=== PATIENT | female | born 1965 | race Caucasian/White ===

== ENCOUNTER 2016-04-14 17:51 | Emergency (ER) ==
[2016-04-14 18:24] LABS: URINE CULTURE NEEDED? NO; URINE SOURCE CLEAN CATCH
--- NOTE | 2016-04-14 18:30 | PROVIDER DOCUMENTATION ---
HPI-General Adult - General Chief Complaint: UTI Symptoms Stated Complaint: UTI SX Time Seen by Provider: 04/14/16 18:10 Source: patient Allergies/Adverse Reactions: Patient Allergies Allergy/AdvReac Type Severity Reaction Status Date / Time No Known Allergies Allergy Verified 04/14/16 18:23 Home Medications: Duloxetine [Cymbalta] 120 mg PO QHS 04/08/12 Gabapentin [Neurontin] 600 mg PO BID 04/08/12 Tizanidine [Zanaflex] 8 mg PO QHS 04/08/12 Zolpidem Tartrate [Ambien Cr] 12.5 mg PO QHS 04/14/16 - History of Present Illness -Gen Adult Nature of Presenting Problems: 51 y/o f presents to the ed with UTI symptoms X 1 week. pt reports she has been having generalized abdomen pain along with bilateral back pain, nausea, fever and chills. pt denies any vomiting/diarrhea. Location of Pain/Injury: reports: abdomen Pain Radiation: reports: back Quality of Pain: reports: aching Severity: reports: mild Onset/Duration: reports: 1 week ago Timing: reports: still present Associated Symptoms: reports: back/neck pain, fever/chills Similar Symptoms Previously?: No Recently seen or treated by another doctor?: No Review of Systems - Adult - REVIEW OF SYSTEMS - ADULT Constitutional: reports: chills, fever. denies: night sweats, weight gain Gastrointestinal: reports: abdominal pain, nausea. denies: constipation, diarrhea Musculoskeletal: reports: back pain. denies: muscle aches Past History - Adult - PAST MEDICAL HISTORY-ADULT Review of Records: reports: Old Records Reviewed, Nursing Assessment Review, Medications Reviewed - IMMUNIZATION STATUS Childhood Immunizations: See Nurse Assessment Flu Vaccine: See Nurse Assessment - SOCIAL HISTORY Smoking: non-smoker Substance Use: alcohol Alcohol Use Frequency: occasionally Physical Exam-General - PHYSICAL EXAM-ADULT Initial Vital Signs Reviewed: Yes - CONSTITUTIONAL General Appearance: appears well, alert, no apparent distress - EYES Eyes: PERRL/EOMI, pink conjunctivae, fundi clear, no AV nicking - HEAD, EARS, NOSE, MOUTH & THROAT HENMT: normocephalic/atraumatic, moist mucous membranes, normal ENT inspection - NECK Neck: non-tender, full range of motion, supple - RESPIRATORY Respiratory: chest non-tender, lungs clear, normal breath sounds - CARDIOVASCULAR Cardiovascular: normal peripheral pulses, regular rate, rhythm - GASTROINTESTINAL (ABDOMEN) Abdominal Exam: normal bowel sounds, soft, tenderness - LYMPHATIC Lymphatic: no adenopathy - MUSCULOSKELETAL Back Exam: CVA tenderness - SKIN Integumentary: normal color, normal turgor, warm/dry - PSYCHIATRIC Psych/Mental Status: normal mood/affect, normal thought content, normal thought process, oriented x 3 Progress - PLAN OF CARE/RESULTS Progress/Plan/Lab Results: plan of care: labs, medication Laboratory Tests 04/14/16 18:13 Urine Source CLEAN CATCH Urine Color YELLOW Urine Turbidity HAZY Urine pH 5.5 Ur Specific [place] 1.021 Urine Protein 100 A Ur Glucose (Stick) NEGATIVE Ur Ketones (Stick) NEGATIVE Urine Blood MODERATE A Urine Nitrite POSITIVE A Urine Bilirubin NEGATIVE Urobilinogen Dipstick 2 A Urine Leukocytes LARGE A Orders Category Date Time Status UA NIMS W/REFLEX CULT [URINALYSIS] Stat Lab 04/14/16 18:13 Results URINE MANUAL MICROSCOPIC [URINALYSIS] Stat Lab 04/14/16 18:13 Results CefTRIAXONE [Rocephin] Med 04/14/16 19:03 Discontinued 1 gm IM NOW ONE Lidocaine 1% Pf [Xylocaine-Mpf 1%] Med 04/14/16 19:03 Discontinued 5 ml INJ NOW ONE Vital Signs - 24 hr 04/14/16 17:55 Temperature 97.6 F Pulse Rate 79 Respiratory 18 Rate Blood Pressure 160/94 O2 Sat by Pulse 99 Oximetry Departure - Departure Time of Disposition Order: 19:04 DIAGNOSIS: UTI (urinary tract infection) Qualifiers: Urinary tract infection type: site unspecified Hematuria presence: without hematuria Qualified Code(s): N39.0 - Urinary tract infection, site not specified Disposition: HOME 01 Certified Medical Emergency: Emergent Condition: Stable Additional Instructions: ED Follow Up Instructions: You have been treated by a care provider in the Emergency Department. These instructions are being provided to you so you can have an understanding of how to care for yourself upon discharge. Upon discharge from the Emergency Department, you are responsible for making arrangements for follow-up care by a physician of your choice. Take all prescribed medications as directed. Return to the Emergency Department immediately for any new or worsening symptoms. You may call the Physician Referral phone number at [phone] to obtain a list of Physicians who are taking new patients. Prescriptions: Phenazopyridine HCl [Pyridium] 100 mg PO TID #21 tablet Attestation - Scribe Verification/Attestation Scribe:: Jo Ann Tran Acting as Scribe for:: Brigido Antonio Scribe documention review:: This chart was documented by a scribe and accurately reflects the service the provider performed and the decisions made by the provider.
[2016-04-14 18:47] LABS: BILIRUBIN URINE NEGATIVE (NEGATIVE); BLOOD URINE MODERATE (NEGATIVE); COLOR YELLOW; GLUCOSE URINE NEGATIVE (NEGATIVE); LEUKOCYTES URINE LARGE (NEGATIVE); NITRITE URINE POSITIVE (NEGATIVE); PH URINE 5.5; PROTEIN URINE 100 mg/dL (NEGATIVE); SP GRAVITY URINE 1.021; TURBIDITY URINE HAZY (CLEAR); UROBILINOGEN URINE 2 mg/dL (NORMAL)
[2016-04-14 18:49] LABS: URINE MICRO REVIEW NEEDED? YES
[2016-04-14] MEDS ORDERED: ROCEPHIN IM ONE (19:03)
[2016-04-14] MEDS ORDERED: XYLOCAINE-MPF 1% INJ ONE (19:03)
[2016-04-14 19:08] LABS: UR EPITHELIAL CELLS >10 /HPF (<10); URINE BACTERIA 4+ /HPF; URINE RBC TNTC /HPF (<10); URINE WBC TNTC /HPF (<10)
[2016-04-14 19:12] LABS: URINE CASTS NONE SEEN; URINE CRYSTALS CA OXALATE PRESENT; URINE SMALL ROUND CELLS NONE SEEN
[2016-04-14] MEDS ORDERED: PYRIDIUM PO ONE (19:13)
[2016-04-14 20:11] VITALS: BP 141/82
== END 2016-04-14 20:22 | disposition home or self-care (01) ==
LOC: ED 17:51
DX: N39.0 Urinary tract infection, site not specified (principal); R10.84 Generalized abdominal pain; M54.89 Other dorsalgia; R11.0 Nausea; R50.9 Fever, unspecified; R10.819 Abdominal tenderness, unspecified site; Z79.899 Other long term (current) drug therapy
CPT/HCPCS: 81001; 96372; J0696